=== PATIENT | female | born 1945 ===

== ENCOUNTER 2020-09-20 08:12 | Inpatient (IN) | payer OTHER ==
[~2020-09-20] VITALS: Ht 157.5 cm; Wt 59.0 kg
[2020-09-20] MEDS ORDERED: ALTACE5 MG PO (08:22)
[2020-09-20] MEDS ORDERED: LIPITOR20 MG PO (08:23)
== END 2020-09-24 13:16 | disposition home or self-care (01) | DRG 390 ==
LOC: ER 08:12 → SURH 18:22 → SEC-K 18:22 → SURH 09-21 02:44
PROVIDERS: ADMIT Surgery; ATTEND Surgery
PROC: BW2110Z Computerized Tomography (CT Scan) of Abdomen and Pelvis using Low Osmolar Contrast, Unenhanced and Enhanced (ICD-10-PCS; principal; 2020-09-20)
DX: K56.609 Unspecified intestinal obstruction, unspecified as to partial versus complete obstruction (principal); Z20.822 Contact with and (suspected) exposure to COVID-19; I10 Essential (primary) hypertension; K21.9 Gastro-esophageal reflux disease without esophagitis; E78.5 Hyperlipidemia, unspecified; R11.2 Nausea with vomiting, unspecified; R10.9 Unspecified abdominal pain

== ENCOUNTER 2020-10-18 08:05 | Outpatient (CLI) | payer OTHER ==
[~2020-10-18 08:05] MED LIST: ALTACE5 MG PO; LIPITOR20 MG PO
== END 2020-10-18 08:17 | disposition home or self-care (01) ==
LOC: RX STUDY 08:05
PROVIDERS: ATTEND Surgery
DX: R10.13 Epigastric pain (principal); K57.30 Diverticulosis of large intestine without perforation or abscess without bleeding; K64.8 Other hemorrhoids

== ENCOUNTER 2021-05-08 09:20 | Outpatient (CLI) | payer OTHER | END 2021-05-08 09:29 | disposition home or self-care (01) | LOC: RAD 09:20 | PROVIDERS: ATTEND Surgery | DX: K57.30 Diverticulosis of large intestine without perforation or abscess without bleeding (principal); K64.8 Other hemorrhoids; K56.50 Intestinal adhesions [bands], unspecified as to partial versus complete obstruction ==

== ENCOUNTER 2022-02-19 08:45 | Inpatient (IN) | payer OTHER ==
[~2022-02-19] VITALS: Ht 157.5 cm; Wt 55.8 kg
[2022-02-19] MEDS ORDERED: NORVASC2.5 MG PO (11:25)
[2022-02-24] MEDS ORDERED: FAMOTIDINE20 MG (09:44)
[2022-02-27] MEDS ORDERED: LEVSIN/SL0.125 MG SL (08:08)
[2022-02-27] MEDS ORDERED: INTESTINEX680 M1 PO (08:08)
[2022-02-27] MEDS ORDERED: NEURONTIN300 MG PO (08:08)
== END 2022-02-27 11:07 | disposition home or self-care (01) | DRG 330 ==
LOC: O/R 02-24 05:50 → SURH 02-24 07:15 → SURG 02-24 13:49 → SURH 02-24 15:56
PROVIDERS: ADMIT Surgery; ATTEND Surgery
PROC: 0DBP4ZZ Excision of Rectum, Percutaneous Endoscopic Approach (ICD-10-PCS; 2022-02-24)
PROC: 0DJD8ZZ Inspection of Lower Intestinal Tract, Via Natural or Artificial Opening Endoscopic (ICD-10-PCS; 2022-02-24)
PROC: 0DTN4ZZ Resection of Sigmoid Colon, Percutaneous Endoscopic Approach (ICD-10-PCS; principal; 2022-02-24 07:15)
DX: K57.30 Diverticulosis of large intestine without perforation or abscess without bleeding (principal); K56.50 Intestinal adhesions [bands], unspecified as to partial versus complete obstruction; K59.02 Outlet dysfunction constipation; K64.8 Other hemorrhoids

== ENCOUNTER 2022-06-07 14:14 | Inpatient (IN) | payer OTHER ==
[~2022-06-07] VITALS: Ht 162.6 cm; Wt 70.3 kg
[~2022-06-07 14:14] MED LIST changes: +FAMOTIDINE20 MG; +INTESTINEX680 M1 PO; +LEVSIN/SL0.125 MG SL; +NEURONTIN300 MG PO; +NORVASC2.5 MG PO
--- NOTE | 2022-06-07 14:41 | NUR ---
PACIENTE ALERTA Y ORIENTADA POR CAROLE. REFIERE DESDE LAS 3AM DOLOR ABDOMINAL Y VOMITOS X 10. REFIERE FUE OPERADA POR DRA Leonard BROWN EN DICIMBRE 6 DE LOS INTESTINOS.
--- NOTE | 2022-06-07 16:00 | NUR ---
PTE EVALUADO POR MD SIMMONS ORDENA TX MED SE EUEDUCA A PTE SOBRE EL MISMO Y REFIERE ENTENDER. SE EJECUTAN ORDENES BAJO MEDIDAS ACEPTICAS. PTE PEND A RESULTADOS DE LAB Y REALIZACION DE CT. PTE BAJO OBSERBACIONM POR CAMBIO EN ANSARI CONDICION.
--- NOTE | 2022-06-07 22:13 | NUR ---
SE OBSERVA QUE PACIENTE ELIMINA 300ML DE RESIDUAL GASTRICO Y EL MISMO ES COLOR AMARILLO CHANDRA.
--- NOTE | 2022-06-07 22:13 | NUR ---
SE TRASLADA PACIENTE A AREA DE [facility], SE UBICA EN CAMA, MARLENA CHAVEZ LE COLOCA NGT TO LIS EN FOSA NASAL DERECHA, SE CORROBORA CON AUSCULTACION QUE NGT SE ENCUENTRE EN [place].
--- NOTE | 2022-06-08 | NUR ---
PACIENTE ALERTA Y ORIENTADA X3. EN CAMA CON BARANDAS ELEVADAS Y INTERCOM ACCESIBLE. IV FLUID PATENTE Y VEENA DE EDEMA Y ERITEMA. PACIENTE CONSULTADA CON DR. CHYNA CHOI. TUBO NASOGASTRICO EN KEISHA DERECHO DRENANDO LIQUIDO COLOR OLIVIA (400ML) CONECTADA A SUCCION INTERMITENTE BAJA. SE MANTIENE BAJO OBSERVACION POR CAMBIOS SIGNIFICATIVOS.
--- NOTE | 2022-06-08 03:34 | NUR ---
PACIENTE ALERTA Y ORIENTADA X3. SE ORIENTA SOBRE TX A RECIBIR Y REFIRIO ENTENDER. SE ADMINISTRA MEDICAMENTO ORDENADO POR MD. SE MANTIENE BAJO OBSERVACION POR CAMBIOS SIGNIFICATIVOS.
--- NOTE | 2022-06-08 07:21 | NUR ---
SE RECIBE PTE DEL TURNO ANTERIOR ALERTA Y ORIENTADO POR 3 EN CAMA CON BARANDAS ELEVADA Y TIMBRE ACCESIBLE SE OBSERVA VENOPUNCION PATENTE Y LBRE DE EDEMA, SE OBSERVA TUBO NASO GASTRICO EN FOSA NASAL RT CON SUCCION INTERMITENTE, PTE SE MANTIENE EN OBSERVACION Y BAJO TRATAMIENTO EN ESEPRA DEL DR CLEMENTE
[2022-06-09] MEDS ORDERED: ATORVASTATIN CA20 MG (08:29)
[2022-06-19] MEDS ORDERED: INTESTINEX680 M1 PO (07:53)
[2022-06-19] MEDS ORDERED: LEVSIN/SL0.125 MG SL (07:53)
== END 2022-06-19 14:05 | disposition home or self-care (01) | DRG 337 ==
LOC: ER 14:14 → SURH 06-08 12:02
PROVIDERS: ADMIT Surgery; ATTEND Surgery
PROC: BW2110Z Computerized Tomography (CT Scan) of Abdomen and Pelvis using Low Osmolar Contrast, Unenhanced and Enhanced (ICD-10-PCS; 2022-06-07)
PROC: 0D9670Z Drainage of Stomach with Drainage Device, Via Natural or Artificial Opening (ICD-10-PCS; 2022-06-08)
PROC: BW2110Z Computerized Tomography (CT Scan) of Abdomen and Pelvis using Low Osmolar Contrast, Unenhanced and Enhanced (ICD-10-PCS; 2022-06-10)
PROC: 0DNA0ZZ Release Jejunum, Open Approach (ICD-10-PCS; 2022-06-11)
PROC: 0DNB0ZZ Release Ileum, Open Approach (ICD-10-PCS; 2022-06-11)
PROC: 0DNV0ZZ Release Mesentery, Open Approach (ICD-10-PCS; 2022-06-11)
PROC: 02HV33Z Insertion of Infusion Device into Superior Vena Cava, Percutaneous Approach (ICD-10-PCS; 2022-06-11)
PROC: 0DNW0ZZ Release Peritoneum, Open Approach (ICD-10-PCS; principal; 2022-06-11 07:00)
DX: K56.52 Intestinal adhesions [bands] with complete obstruction (principal); Z90.49 Acquired absence of other specified parts of digestive tract; I10 Essential (primary) hypertension; E78.5 Hyperlipidemia, unspecified